=== PATIENT | female | born 1990 ===

== ENCOUNTER 2017-08-29 15:33 | Emergency (ER) | payer MEDICAID, SELFPAY ==
[2014-05-30 17:49] VITALS: BMI 29.0
--- NOTE | 2017-08-29 18:07 | OBHP ---
Datetime: 08/29/2017 16:44 IP Adm Impression: Term, intrauterine Admit Comment, IP Provider: Patient is 38.5 weeks gestation PIPPA 09/07/17 based on LMP of 07/2016 and first U/S 02/27/2017, she came in regarding white/transparent fluid leaking since this mo rning and occasional contractions since yesterday lasting 1 minute at a time spaced out 30 minutes ap art. She is a clinic patient and sees Dr. Scott. She is having, nausea, and feels hot/sweaty, Denies vaginal bleeding, and good movement. Being treated for vaginal yeast infection by her PMD. PNC: Mother is negative for HIV, HBsAG, GBS, GC/CL, RPR, Antibiodies, PPD, Immune-Rubella, ABO: A , TDAP- L deltiod 07/06/17 OBhX: 2015-1 vaginal delivery- oligohydramnios- baby had jaundice 2013- SAB 7wks [employer] Hx: Patient was diagnosed with vaginal fungus by Dr. Crowley and is on medication day 1 Had Chlamydia during her in 2014 PMHx- None Medications- Antiobiotic-unknown, Prenatals Allergies:NKDA FHx: Mom- HTN SurgHx: None Hosp: None Impression IUP at 38 weeks r/o ruptured membranes. Plan SSE no pooling noted sonogram bedside adequate fluid vertex presentation Monitor tracings tracing categry 1 observation patient cleared for discharge labor precautions provided F/U with [facility] this sunday Extremities - PN: Normal Abdomen - PN: Normal Lungs - PN: Normal Heart - PN: Normal Weight - Estimated: 7 Presentation-Admit: Vertex FHR - Baseline A Provider: 145 Comments, ACOG Physical Exam: 1+ pitting edema Patient noteably sweating Gestation - Est Wks by US: 38.0 Pool Provider: Negative IP Hx Assessment: The History has been Reviewed and is Current EGA AdmitDate IP: 38.5 Vital Signs Provider: Reviewed Vital Signs Provider Details: BP 119/73 IP Chief Complaint: Uterine contractions; Suspected ruptured membranes NICHD Variability Prov Fetus A: Moderate 6-25bpm NICHD Accel Fetus A IP Provider: 15X15 FHR Category Provider Fetus A: Category I NICHD Decel Fetus A IP Provider: None Dilatation, Provider: 1 Effacement, Provider: 75 Station, Provider: -2 Genitourinary Exam: Normal
[2017-08-29 23:25] VITALS: BP 116/81; PULSE 69; RESP 18; TEMP 98.9; O2SAT 100
== END 2017-08-29 17:47 | disposition home or self-care (01) ==
LOC: H.EROB2 15:33
DX: O47.1 False labor at or after 37 completed weeks of gestation (principal); O34.63 Maternal care for abnormality of vagina, third trimester; N89.8 Other specified noninflammatory disorders of vagina; R10.2 Pelvic and perineal pain; Z3A.38 38 weeks gestation of pregnancy

== ENCOUNTER 2017-09-02 11:43 | Inpatient (IN) | payer MEDICAID, SELFPAY ==
[2017-09-02 12:22] VITALS: BMI 32.2
[2017-09-02] MEDS ORDERED: Lactated Ringer's 1,000 ML IV SCH (12:45)
[2017-09-02] MEDS ORDERED: Dextrose 5%/Lactated Ringer's 1,000 ML IV SCH (12:45)
[2017-09-02] MEDS ORDERED: Oxytocin 30 units/LR 500ML 30 U/500 ML BAG IV ONE ×3 (14:04→21:02)
[2017-09-02 14:58] LABS: BASO % 0.1 % (0.0-2.0); EOS % 0.4 % (0.0-4.0); HEMOGLOBIN 12.7 g/dL (12.0-16.0); LYMPH # 1.1 K/uL (1.0-4.3); LYMPH % 15.2 % (20.0-40.0); MEAN CELL VOLUME 87.9 fl (81.0-99.0); MEAN CORPUSCULAR HEMOGLOBIN 29.8 pg (27.0-31.0); MEAN CORPUSCULAR HGB CONC 33.9 g/dL (33.0-37.0); MEAN PLATELET VOLUME 8.8 fl (7.2-11.7); MONO # 0.4 K/uL (0.0-0.8); MONO % 5.5 % (0.0-10.0); NEUT # 5.5 K/uL (1.8-7.0); NEUT % 78.8 % (50.0-75.0); RBC 4.26 Mil/uL (3.80-5.20); RED CELL DISTRIBUTION WIDTH 14.6 % (11.5-14.5)
--- NOTE | 2017-09-02 15:04 | OBADHP ---
Datetime: 09/02/2017 14:12 FHR - Baseline A Provider: 130s Membranes, Provider: Intact Contraction Comments Provider: q3-4 min Vital Signs Provider: Reviewed NICHD Variability Prov Fetus A: Moderate 6-25bpm NICHD Accel Fetus A IP Provider: 10X10 FHR Category Provider Fetus A: Category I NICHD Decel Fetus A IP Provider: None Dilatation, Provider: 4 Effacement, Provider: 80 Station, Provider: -2 Datetime: 09/02/2017 13:02 Admit Comment, IP Provider: 26 yo at 39.2 weeks GA, PIPPA 09/07/17 based on LMP of 12/01/2016 c/w first trimester US presents to [place] w/ complaints of ctx q4-5 min since 8 am this AM associated w ith blood tinged mucus plug about 2 hours ago. Reports +FM. Denies LOF. Pt is on flagyl for BV. Den ies chest pain, dyspnea, fever, chills or dizziness. Pt is GBS Neg. PNC: [facility], Dr. Scott PNL: Negative for HIV, HBsAG, GBS, GC/CL, RPR, Antibiodies, PPD, Immune-Rubella, ABO: A, TDAP- L deltiod 07/06/17 OBhX: 2015-1 vaginal delivery- oligohydramnios- baby had jaundice 2013- SAB 7wks [employer]door [employer] Hx: Menarche at age 12, pap neg, hx Chlamydia during her in 2014. BV in current preg rosemarie. PMHx- Antepartum depression (stopped visiting S due to being busy), hx chlamydia Medications- PNV Allergies:NKDA FHx: Mom- HTN SurgHx: None Assessement/plan: 26 yo IUP @39.2 weeks GA presents for increased uterine ctx since this A M, not in active labor. Plan: SVE: - Continuous heart tracing IVF's re-eval case d/w on-call OB hospitalist Dr. Boris Jaimes, pgy-2 re-evaluation: SVE: Plan: Admit to L_D initiate labor protocol GBS negative labs pain management Pt seen and examined with Dr. Boris Scott, pgy-2 OB attending addendum: Patient seen and examined by me with . Upon triage patient was observed for further assessment and plan she and possibility of decreased labor. I/P Admitted for active labor. Pelvic Type - PN: Adequate Extremities - PN: Normal Abdomen - PN: Normal Lungs - PN: Normal Heart - PN: Normal Neurologic - PN: Normal HEENT - PN: Normal General - PN: Normal Presentation-Admit: Vertex Comments, ACOG Physical Exam: Mild edema B/L lower leg IP Hx Assessment: The History has been Reviewed and is Current IP Chief Complaint: Uterine contractions Genitourinary Exam: Normal EGA AdmitDate IP: 39.3 IP Adm Impression: Term, intrauterine IP Admit Plan: Admit to unit; Initiate labor protocol Datetime: 08/29/2017 16:44 Weight - Estimated: 7 Gestation - Est Wks by US: 38.0 Pool Provider: Negative Vital Signs Provider Details: BP 119/73
--- NOTE | 2017-09-02 15:05 | OBPN ---
Datetime: 09/02/2017 14:12 IP Progress Impression: Normal progression of labor IP Progress Plan: Continue present management Membranes, Provider: Intact Contraction Comments Provider: q3-4 min FHR - Baseline A Provider: 130s IP Progress Note Comment: re-evaluation: SVE: /-2 Plan: Admit to L_D initiate labor protocol GBS negative labs pain management Pt seen and examined with Dr. Boris Scott, pgy-2 Vital Signs Provider: Reviewed NICHD Accel Fetus A IP Provider: 10X10 FHR Category Provider Fetus A: Category I NICHD Variability Prov Fetus A: Moderate 6-25bpm Dilatation, Provider: 4 Effacement, Provider: 80 Station, Provider: -2 NICHD Decel Fetus A IP Provider: None Datetime: 09/02/2017 13:02 Presentation-Admit: Vertex Datetime: 08/29/2017 16:44 Pool Provider: Negative Gestation - Est Wks by US: 38.0 Weight - Estimated: 7 Vital Signs Provider Details: BP 119/73
[2017-09-02] MEDS ORDERED: Fentanyl/Bupivacaine HCl 250 ML EPI ONE (15:39)
[2017-09-02] MEDS ORDERED: Lidocaine 1% Inj (20ml) ONE (17:28)
[2017-09-02] MEDS ORDERED: Benzocaine/Menthol SPRAY TOP PRN (22:40)
[2017-09-02] MEDS ORDERED: Oxycodone/Acetaminophen 5/325 mg Tab PO PRN (22:40)
[2017-09-03] MEDS ORDERED: Benzocaine/Menthol SPRAY TOP PRN (00:41)
[2017-09-03 06:42] LABS: BASO % 0.2 % (0.0-2.0); EOS % 0.1 % (0.0-4.0); HEMOGLOBIN 11.3 g/dL (12.0-16.0); LYMPH # 1.4 K/uL (1.0-4.3); LYMPH % 12.4 % (20.0-40.0); MEAN CELL VOLUME 86.8 fl (81.0-99.0); MEAN CORPUSCULAR HEMOGLOBIN 29.3 pg (27.0-31.0); MEAN CORPUSCULAR HGB CONC 33.8 g/dL (33.0-37.0); MEAN PLATELET VOLUME 8.5 fl (7.2-11.7); MONO # 0.7 K/uL (0.0-0.8); MONO % 6.3 % (0.0-10.0); NEUT # 9.2 K/uL (1.8-7.0); NRBC % 0.1 % (0.0-0.0); RBC 3.84 Mil/uL (3.80-5.20); RED CELL DISTRIBUTION WIDTH 14.7 % (11.5-14.5); WHITE BLOOD COUNT 11.3 K/uL (4.8-10.8)
--- NOTE | 2017-09-03 08:06 | OBDS ---
DELIVERY PERSONNEL Delivery Doctor: Peace Riojas MD Division Supervisor: Love Vela RN, Beatriz TORRE Anesthesiologist: Tara Stack MD Resident: Dr. Rosario Barron MATERNAL INFORMATION Delivery Anesthesia: Epidural Medications in Delivery: Pitocin Estimated Blood Loss (ml): 250 Placenta Cultured: No Maternal Complications: None Provider Comments: of a viable female from cephalic presentation over the second degree perineal laceration. 's head delivered in a controlled manner. No nuchal cord was no noted. Inf ant was bulb suctioned at the perineum and was crying spontaneously. Infant was placed on mother stom ach. Cord was double calmped and cut by baby's father. Placenta was delived intact and spontanously w/ gentle cord tract and uterine massage. 3 vessel co rds were noted. IV fluids 1L plus Pitochin 20 units started immediately w/ delivery of placenta. Midl ine second degree perineal laceration was repaired with 3-0 vicryl. Cervix and vagina were inspected for lacerations and non were noted. Female infant's wt 3170 gram and scores were 9/9. EBL 250 c c. LABOR SUMMARY EDC: 09/06/2017 00:00 No. Babies in Womb: 1 Attempted: No Labor Anesthesia: Epidural LABOR INFORMATION Reason for Induction: Not Applicable Onset of Labor: 09/02/2017 08:30 Complete Dilatation: 09/02/2017 20:30 Oxytocin: Augmentation Group B Beta Strep: Negative Antibiotics # of Doses: N/A Steroids Given: None Reason Steroids Not Administered: Not Applicable MEMBRANES Membranes Rupture Method: Artificial Rupture of Membranes: 09/02/2017 07:00 Length of Rupture (hrs): 15.27 Amniotic Fluid Color: Light Meconium Amniotic Fluid Amount: Moderate Amniotic Fluid Odor: Normal STAGES OF LABOR Stage 1 hrs: 12 Stage 1 min: 0 Stage 2 hrs: 1 Stage 2 min: 46 Stage 3 hrs: 0 Stage 3 min: 7 Total Time in Labor hrs: 13 Total Time in Labor min: 53 VAGINAL DELIVERY Episiotomy: None Laceration Extension: Second Degree Laceration Type: Perineal Laceration Repair: Yes Laceration Repair Note: 2nd degree perineal _ vaginal laceration repaired with 3-0 polysorb. Initial Vag Sponge Count: 15 Final Vag Sponge Count: 15 Initial Vag Sharps Count: 1 Final Vag Sharps Count: 1 Sponge Count Correct: Yes Sharps Count Correct: Yes Count Comment: Instruments 15 sharps 1 Laps 5 X-Ray Detectable Sponges 10 BABY A INFORMATION Delivery Date/Time: 09/02/2017 22:16 Method of Delivery: Vaginal Born in Route : No : N/A Forceps: N/A Vacuum Extraction: N/A Shoulder Dystocia : No SHOULDER DYSTOCIA BABY A Infant Delivery Date/Time: 09/02/2017 22:16 PRESENTATION/POSITION BABY A Presentation: Cephalic Cephalic Presentation: Vertex Breech Presentation: N/A PLACENTA INFORMATION BABY A Placenta Delivery Time : 09/02/2017 22:23 Placenta Method of Delivery: Spontaneous Placenta Status: Delivered SCORES BABY A Heart Rate 1 min: >100 bpm Resp Effort 1 min: Good Cry Reflex Irritability 1 min: Cough or Sneeze or Pulls Away Muscle Tone 1 min: Active Motion Color 1 min: Body [place], Extremities Blue Resuscitation Effort 1 min: Tactile Stimulation SCORE 1 MIN: 9 Heart Rate 5 min: >100 bpm Resp Effort 5 min: Good Cry Reflex Irritability 5 min: Cough or Sneeze or Pulls Away Muscle Tone 5 min: Active Motion Color 5 min: Body [place], Extremities Blue Resuscitation Effort 5 min: Tactile Stimulation SCORE 5 MIN: 9 INFORMATION BABY A Gestational Age at Delivery: 39.2 Gestational Status: Term Outcome : Liveborn Condition : Stable Infant Sex: Female IDENTIFICATION/MEDS BABY A ID Band Number: [id number] ID Band Location: Left Leg; Left Arm WEIGHT/LENGTH BABY A Infant Birthweight (gms): 3170 Weight (lb): 7 Weight (oz): 0 CORD INFORMATION BABY A No. Cord Vessels: 3 Nuchal Cord : N/A Cord Blood Taken: Yes Suction: Mouth; Nose ASSESSMENT BABY A Infant Complications: Meconium Physical Findings at Delivery: Within Normal Limits Respirations: Appears Normal Staff Psychologist/ALS Called : No Care By: Beatriz TORRE Transferred To: Remains with Mother
[2017-09-03] MEDS: Oxycodone/Acetaminophen 5/325 mg Tab PO PRN ×2 (09:24→16:19)
--- NOTE | 2017-09-03 10:44 | OBPPN ---
Datetime: 09/03/2017 07:16 PP Pain Prov: Within normal limits PP Nausea Prov: Denies PP Flatus Prov: No PP BM Prov: No PP Heart Prov: Normal PP Lungs Prov: Normal PP Lochia Prov: Normal PP Impression Prov: Normal progression PP Plan Prov: Continue present management PP Progress Note Prov: 26 y/o s/p on 09/02/2017 @ 22:16; Patient had no adverse events ov ernight. Lochia like menses; Patient denied BM or flatus but voided without difficulty. Patient was n ot sure what type of contraception she would like to use post-discharge. PE:well appearing female Cardio: s1s2 murmur, auscultated Resp: B/L breath sounds auscultated Abd: BS+ Ext: nontender A/P:26 y/o s/p on 09/02/2017 @ 22:16 1. Continue current management. 2. Regular diet, Ibuprofen 600mg PO PRN for mild/moderate pain. 3. Encourage . 4. Ambulate as tolerated. Addendum by Dr. larios: I have evaluated the patient independently and I agree with the above Vital Signs Provider PP: Reviewed
--- NOTE | 2017-09-04 11:11 | OBPPN ---
Datetime: 09/04/2017 08:09 PP Pain Prov: Within normal limits PP Nausea Prov: Denies PP Flatus Prov: Yes PP BM Prov: Yes PP Heart Prov: Normal PP Lungs Prov: Normal PP Abdomen/Uterus Prov: Normal PP Lochia Prov: Normal PP CVA Tenderness Prov: Normal PP Impression Prov: Normal progression PP Plan Prov: Discharge PP Progress Note Prov: 26 y/o PPD2 s/p did well overnight with no adverse events. Patie nt is tolerating regular diet, fundus at umbilicus _ lochia is like menses. PE: well appearing female Cardio: s1s2, no murmurs Resp: lungs clear b/l Abd: BS+ Ext: nontender A/P:26 y/o PPD2 s/p 1. Breastfeeing encouraged 2. Ambulate as tolerated 3. Discharge today Case discussed with attending Rosario Sequeira PGY-1 Patient seen and evaluated by me this am. Agree with above resident note. Patient for discharge ho me today and rtc for check in 6 weeks. Patient informed that baby needs follow up with ped within the week. --Dr. Cleveland Vital Signs Provider PP: Reviewed; Within Normal Limits
[2017-09-04 18:50] VITALS: BP 104/67; PULSE 56; RESP 20; TEMP 98; O2SAT 99
== END 2017-09-04 14:45 | disposition home or self-care (01) | DRG 373 ==
LOC: H.EROB2 11:43 → H.L&D 14:00 → H.OB/GYN 09-03 00:30
PROVIDERS: ADMIT Obstetrics & Gynecology; ATTEND Obstetrics & Gynecology
PROC: 10E0XZZ Delivery of Products of Conception, External Approach (ICD-10-PCS; principal; 2017-09-02)
PROC: 0KQM0ZZ Repair Perineum Muscle, Open Approach (ICD-10-PCS; 2017-09-02)
PROC: 10907ZC Drainage of Amniotic Fluid, Therapeutic from Products of Conception, Via Natural or Artificial Opening (ICD-10-PCS; 2017-09-02)
PROC: 4A1HXCZ Monitoring of Products of Conception, Cardiac Rate, External Approach (ICD-10-PCS; 2017-09-02)
DX: O77.0 Labor and delivery complicated by meconium in amniotic fluid (principal); O70.1 Second degree perineal laceration during delivery; Z37.0 Single live birth; Z3A.39 39 weeks gestation of pregnancy; Z86.19 Personal history of other infectious and parasitic diseases

== ENCOUNTER 2017-11-19 19:06 | Emergency (ER) | payer SELFPAY ==
[2017-11-19 19:06] VITALS: BMI 32.2
[2017-11-19 19:17] VITALS: O2SAT 98
--- NOTE | 2017-11-19 19:47 | ED PDOC ---
HPI: Back Time Seen by Provider: 11/19/17 19:17 Chief Complaint (Nursing): Back Pain Chief Complaint (Provider): Back Pain History Per: Patient, [employer] Former ([id number]) History/Exam Limitations: no limitations Onset/Duration Of Symptoms: Days (x3) Current Symptoms Are (Timing): Still Present Additional Complaint(s): 26 year old female presents to the ED complaining of constant lower back pain for 3 days. Patient reports she is unable to bend down and has difficulty carrying her child. She states she last took Tylenol last night at 22:00 with no relief and applied Icy Hot with no relief. Denies numbness, weakness, nausea, vomiting, abdominal pain, chest pain, fever, cough, SOB, falls, trauma, dysuria, hematuria, or history of back surgery. Of note, patient is 2.5 months post- and her menses has not returned yet secondary to breast feeding. PMD: Dr. Bauer Past Medical History Reviewed: Historical Data, Nursing Documentation, Vital Signs Vital Signs: Last Vital Signs Temp 98.4 F 11/19/17 19:16 Pulse 74 11/19/17 19:16 Resp 20 11/19/17 19:16 BP 123/58 L 11/19/17 19:16 Pulse Ox 98 11/19/17 19:16 - Medical History PMH: No Chronic Diseases - Surgical History Surgical History: No Surg Hx - Family History Family History: States: Unknown Family Hx - Social History Current smoker - smoking cessation education provided: No Alcohol: None Drugs: Denies - Home Medications Home Medications: Ambulatory Orders Medication Instructions Recorded Ibuprofen [Motrin Tab] 600 mg PO Q6 PRN #30 tab 09/04/17 Acetaminophen [Acetaminophen 8 650 mg PO Q8 PRN #21 tablet.er 11/19/17 Hour] Cyclobenzaprine [Flexeril] 5 mg PO Q8 PRN #12 tab 11/19/17 Multivitamin [Multivitamins] 1 each PO DAILY #60 capsule 11/19/17 Naproxen 500 mg PO BID PRN #20 tab 11/19/17 Nitrofurantoin Macrocrystals 100 mg PO BID #14 cap 11/19/17 [Macrobid] - Allergies Allergies/Adverse Reactions: Allergies Allergy/AdvReac Type Severity Reaction Status Date / Time No Known Allergies Allergy Verified 05/30/14 17:56 Review of Systems ROS Statement: Except As Marked, All Systems Reviewed And Found Negative Constitutional: Negative for: Fever, Other (Trauma) Respiratory: Negative for: Cough, Shortness of Breath Gastrointestinal: Negative for: Vomiting Genitourinary Female: Negative for: Dysuria, Hematuria Musculoskeletal: Positive for: Back Pain (Lower) Neurological: Negative for: Weakness, Numbness Physical Exam - Reviewed Nursing Documentation Reviewed: Yes Vital Signs Reviewed: Yes - Physical Exam Comments: GENERAL APPEARANCE: Patient is awake, alert, oriented x 3, in no acute distress. Resting comfortably. SKIN: Warm, dry; (-) cyanosis. ENMT: Mucous membranes moist. Airway patent, (-) stridor. NECK: Supple, FROM CHEST AND RESPIRATORY: (-) rales, (-) rhonchi, (-) wheezes; breath sounds equal bilaterally. Respirations even and nonlabored. HEART AND CARDIOVASCULAR: (-) irregularity ABDOMEN AND GI: Soft; (-) tenderness; (-) distension (-) palpable mass (-) guarding (-) CVA tenderness. BACK: (+) left paralumbar tenderness, (-) direct bony tenderness, (-) deformity. EXTREMITIES: (-) deformity. Distal pulses good bilaterally. NEURO AND PSYCH: Mental status as above. Intact sensation bilaterally; normal strength in extension of the knees, plantar and dorsiflexion of the toes. Gait: steady. Speech: clear. (-) facial asymmetry (-) aphasia. - Laboratory Results Urine POC: Negative Urine dip results: Positive for: Leukocyte Esterase (small). Negative for: Blood, Nitrate, Ketones, Glucose, Bilirubin, Protein - ECG O2 Sat by Pulse Oximetry: 98 (RA) Pulse Ox Interpretation: Normal Medical Decision Making Medical Decision Making: Initial Impression: Acute back pain, muscle strain vs spasm Initial Plan: --Flexeril 10mg PO ( not driving home) --Toradol 30mg IM --Udip --Upreg --Re-evaluation 2020 Udip reviewed. U/A and U/C ordered. Upreg: negative 2150 U/A (+) UTI. Macrobid 100mg PO ordered. Patient is requesting an Rx for Multivitamins at this time. On re-evaluation, patient reports improvement of symptoms. On exam, patient remains AAOx3, in no acute distress. Lungs clear to auscultation, cardiac RRR, abdomen soft, non-tender, repeat neuro exam shows no focal findings. Vitals stable. Lab/Diagnostic results d/w the patient in great detail. Diagnosis of acute back pain, lumbar strain/spasm, UTI d/w the patient. Based on history, exam and diagnostic results, plan will be for outpatient follow up. Patient instructed to follow-up with pmd / referral provided / the clinic in 1- 2 days without fail. Advised to take medication as prescribed. Return to the emergency room at any time for any new or worsening symptoms. Patient states she fully agrees with and understands discharge instructions. States that she agrees with the plan and disposition. Verbalized and repeated discharge instructions and plan. I have given the patient opportunity to ask any additional questions. Scribe Attestation: Documented by Jose A Jaquez acting as a scribe for Mikaela JONAS. Provider Scribe Attestation: All medical record entries made by the Scribe were at my direction and personally dictated by me. I have reviewed the chart and agree that the record accurately reflects my personal performance of the history, physical exam, medical decision making, and the department course for this patient. I have also personally directed, reviewed, and agree with the discharge instructions and disposition. Disposition - Clinical Impression Clinical Impression: Low back pain, Lumbar strain, UTI (urinary tract infection) - Patient ED Disposition Is Patient to be Admitted: No Counseled Patient/Family Regarding: Studies Performed, Diagnosis, Need For Followup, Rx Given - Disposition Referrals: Cj Will MD [Medical Doctor] - Disposition: Routine/Home Disposition Time: 21:50 Condition: STABLE Additional Instructions: La atencin mdica de emergencia que recibi hoy estaba dirigida a dionna sntomas agudos. Si le prescribieron algn medicamento, llnelo y tome segn las indicaciones. Dionna sntomas pueden tardar varios mills en resolverse. Regrese al Departamento de Emergencia si dionna sntomas empeoran, no mejoran o si tiene algn otro problema. Comunquese con banks mdico en 2 mills para gracie reevaluacin y seguimiento / o llame a francisca de los mdicos / clnicas a los que cowan referido y que figura en el formulario de Informacin de visitas del paciente que se incluye en banks paquete de leighann. Traiga todos los documentos que recibi al momento del leighann junto con l os medicamentos que est tomando en banks visita de seguimiento. Nuestro tratamiento no puede reemplazar la atencin mdica en curso por parte de un proveedor de atencin primaria (PCP) fuera del departamento de emergencias. Prescriptions: Acetaminophen [Acetaminophen 8 Hour] 650 mg PO Q8 PRN #21 tablet.er PRN Reason: Pain, Moderate (4-7) Cyclobenzaprine [Flexeril] 5 mg PO Q8 PRN #12 tab PRN Reason: Muscle Spasm Multivitamin [Multivitamins] 1 each PO DAILY #60 capsule Naproxen 500 mg PO BID PRN #20 tab PRN Reason: Pain, Moderate (4-7) Nitrofurantoin Macrocrystals [Macrobid] 100 mg PO BID #14 cap Instructions: Urinary Tract Infections in Adults, Low Back Pain (DC), Back Exercises, Lumbar Muscle Strain Forms: [employer] (Thai) Print Language: TURKISH - POA Present On Arrival: None Results - Lab Results Lab Results: 11/19/17 20:50 Urine Color Yellow Urine Clarity Cloudy Urine pH 6.0 Ur Specific [place] 1.021 Urine Protein Negative Urine Glucose (UA) Neg Urine Ketones Negative Urine Blood Negative Urine Nitrate Negative Urine Bilirubin Negative Urine Urobilinogen 0.2-1.0 Ur Leukocyte Esterase Mod Urine RBC (Auto) 3 Urine Microscopic WBC 26 H Ur Squamous Epith Cells 6 H Amorphous Sediment Occ H Urine Bacteria Rare
[2017-11-19 21:00] LABS: SQUAMOUS EPITHIAL 6 /hpf (0-5); URINE AMORPHOUS SEDIMENT OCC /ul (<OCC); URINE BACTERIA RARE (<OCC); URINE BILIRUBIN NEGATIVE (NEGATIVE); URINE BLOOD NEGATIVE (NEGATIVE); URINE CLARITY CLOUDY (Clear); URINE COLOR YELLOW (YELLOW); URINE GLUCOSE (UA) NEG (Normal); URINE LEUKOCYTE ESTERASE MOD Leu/uL (Negative); URINE PROTEIN NEGATIVE (NEGATIVE); URINE UROBILINOGEN 0.2-1.0 mg/dL (0.2-1.0)
[2017-11-19 22:57] VITALS: BP 122/78; PULSE 72; RESP 17; TEMP 98
== END 2017-11-19 22:55 | disposition home or self-care (01) ==
LOC: SUPCPDRO 19:06 → H.ER 19:06
DX: S39.012A Strain of muscle, fascia and tendon of lower back, initial encounter (principal); N39.0 Urinary tract infection, site not specified; M54.5 Low back pain
CPT/HCPCS: 81003; 87086; 96372; 99283; J1885